=== PATIENT | male | born 1990 | race Caucasian/White ===

== ENCOUNTER 2022-05-25 17:18 | Inpatient (IN) | payer MEDICARE, MEDICAID ==
[~2022-05-25] VITALS: Ht 182.9 cm; Wt 94.5 kg
[~2022-05-25 17:18] MED LIST: NOCURR
[2022-05-25 20:44] LABS: BASOPHILS % (AUTO) 0.4 % (0.0-2.0); EOSINOPHILS % (AUTO) 0.4 % (1.0-6.0); HEMOGLOBIN 14.8 g/dL (13.5-17.5); LYMPHOCYTES # (AUTO) 2.2 K/uL (1.0-4.8); LYMPHOCYTES % (AUTO) 20.2 % (22.0-44.0); MEAN CORPUSCULAR HEMOGLOBIN 30.8 pg (26.0-34.0); MEAN CORPUSCULAR HGB CONC 35.2 G/dL (31.0-37.0); MEAN CORPUSCULAR VOLUME 87 fL (80-100); MONOCYTES # (AUTO) 0.9 K/uL (0.1-1.0); MONOCYTES % (AUTO) 8.1 % (2.0-9.0); NEUTROPHILS # (AUTO) 7.7 K/uL (1.8-7.7); NEUTROPHILS % (AUTO) 70.9 % (40.0-70.0); PLATELET COUNT (AUTO) 233 K/uL (150-450); RED CELL DISTRIBUTION WIDTH 13.1 % (11.5-14.5)
[2022-05-25 20:53] LABS: ANION GAP 6 mmol/L (8-16); CALCIUM, TOTAL 9.2 mg/dL (8.8-10.5); CARBON DIOXIDE 28 mmol/L (22-29); CHLORIDE 103 mmol/L (98-107); CREATININE 1.05 mg/dL (0.60-1.30); GLUCOSE,RANDOM 97 mg/dL (70-110); POTASSIUM 3.6 mmol/L (3.5-5.1); SODIUM SERUM 137 mmol/L (136-145); UREA NITROGEN, BLOOD 10 mg/dL (7-18)
[2022-05-25 20:54] LABS: GLOMERULAR FILTR. RATE CALC > 60 mL/min (>60)
[2022-05-25 20:58] LABS: ALANINE AMINOTRANSFERASE 34 U/L (12-78); ALBUMIN 3.9 g/dL (3.4-5.0); ALKALINE PHOSPHATASE 62 U/L (46-116); ASPARTATE AMINOTRANSFERASE 26 U/L (15-37); BILIRUBIN,TOTAL 2.8 mg/dL (0.1-1.0); TOTAL PROTEIN, SERUM 6.9 g/dL (6.4-8.2)
[2022-05-25 21:15] LABS: COVID AG,FIA SOURCE NASAL SWAB
[2022-05-26 02:32] VITALS: BP 144/85
[2022-05-26] MEDS ORDERED: INFLUENZA VIRUS VACCINE QVS 2022-23 (6MO+)/PF 60 MCG/0.5 ML SYRINGE IM. ONE (02:45)
[2022-05-26 08:27] VITALS: BP 135/81
[2022-05-26] MEDS ORDERED: CloNIDine HCL 0.1 MG TABLET PO PRN (11:30)
[2022-05-26] MEDS ORDERED: LOPERAMIDE HCL 2 MG CAPSULE PO PRN (11:30)
[2022-05-26] MEDS ORDERED: GuaiFENesin/D-METHORPHAN [SUGAR-FREE] 200-20MG/10 ML SYRUP UDCUP PO PRN (11:30)
[2022-05-26] MEDS ORDERED: MAG HYDROX/AL HYDROX/SIMETH ES 30 ML SUSPENSION UDCUP PO PRN (11:30)
[2022-05-26] MEDS ORDERED: MAGNESIUM HYDROXIDE SUSPENSION 30 ML UDCUP PO PRN (11:30)
[2022-05-26] MEDS ORDERED: ALBUTEROL SULFATE HFA 90 MCG/PUFF 8 GM INHALER IH PRN (11:30)
[2022-05-26] MEDS ORDERED: NICOTINE 14 MG/24 HOUR PATCH TD PRN (11:30)
[2022-05-26] MEDS ORDERED: PETROLATUM,WHITE 28 GM JELLY TP PRN (11:30)
[2022-05-26] MEDS ORDERED: ONDANSETRON HCL 4 MG TABLET PO PRN (11:30)
[2022-05-26] MEDS ORDERED: DOCUSATE SODIUM 100 MG CAPSULE PO PRN (11:30)
[2022-05-26 20:08] VITALS: BP 128/78
[2022-05-27 08:13] VITALS: BP 130/74
[2022-05-27 20:13] VITALS: BP 119/74
[2022-05-28 08:16] VITALS: BP 108/73
[2022-05-28] MEDS: LORazepam 2 MG TABLET PO PRN (18:09)
[2022-05-28] MEDS: HALOPERIDOL 5 MG TABLET PO PRN (18:09)
[2022-05-28 20:08] VITALS: BP 110/64
[2022-05-28] MEDS: ZOLPIDEM TARTRATE 10 MG TABLET PO PRN (20:20)
[2022-05-29 08:20] VITALS: BP 131/68
[2022-05-29 14:18] LABS: APPEARANCE,URINE CLEAR (CLEAR); BILIRUBIN,URINE NEGATIVE (NEGATIVE); GLUCOSE, URINE (UA) NEGATIVE (NEGATIVE); KETONES,URINE NEGATIVE (NEGATIVE); LEUKOCYTE ESTERASE ,URINE NEGATIVE (NEGATIVE); NITRATE,URINE NEGATIVE (NEGATIVE); OCCULT BLOOD,URINE NEGATIVE (NEGATIVE); PROTEIN,URINE NEGATIVE (NEGATIVE); SPECIFIC GRAVITIY, URINE 1.008 (1.003-1.030); UROBILINOGEN,URINE <=1.0 mg/dL (<=1.0)
[2022-05-29 14:24] LABS: AMPHET/METH SCREEN,URINE NEGATIVE (NEGATIVE); BARBITURATE SCREEN, URINE NEGATIVE (NEGATIVE); BENZODIAZEPINES SCREEN,URINE NEGATIVE (NEGATIVE); CANNABINOID SCREEN,URINE NEGATIVE (NEGATIVE); COCAINE SCREEN,URINE NEGATIVE (NEGATIVE); METHADONE SCREEN, URINE NEGATIVE (NEGATIVE); OPIATE SCREEN,URINE NEGATIVE (NEGATIVE)
[2022-05-29 14:25] LABS: PHENCYCLIDINE SCREEN,URINE NEGATIVE (NEGATIVE)
[2022-05-29 20:11] VITALS: BP 109/61
[2022-05-29] MEDS: LORazepam 2 MG TABLET PO PRN (21:18)
[2022-05-29] MEDS: ZOLPIDEM TARTRATE 10 MG TABLET PO PRN (21:18)
[2022-05-30 08:04] VITALS: BP 127/76
[2022-05-30] MEDS: LORazepam 2 MG TABLET PO PRN ×2 (09:05→16:57)
[2022-05-30] MEDS: RisperiDONE 0.5 MG TABLET PO SCH ×2 (10:34→16:57)
[2022-05-30] MEDS: HALOPERIDOL 5 MG TABLET PO PRN (16:57)
[2022-05-30 20:21] VITALS: BP 105/61
[2022-05-31] MEDS: RisperiDONE 0.5 MG TABLET PO SCH ×2 (08:26→16:20)
[2022-05-31] MEDS: LORazepam 2 MG TABLET PO PRN ×2 (08:31→16:20)
[2022-05-31 08:42] VITALS: BP 118/63
[2022-05-31 10:11] LABS: GLUCOMETER DEV NAME(LOC) POC.BV
[2022-05-31] MEDS: HALOPERIDOL 5 MG TABLET PO PRN (16:20)
[2022-05-31 20:00] VITALS: BP 120/70
[2022-06-01] MEDS: RisperiDONE 0.5 MG TABLET PO SCH ×2 (08:03→17:06)
[2022-06-01] MEDS: LORazepam 2 MG TABLET PO PRN ×2 (08:03→20:41)
[2022-06-01 08:09] VITALS: BP 118/70
[2022-06-01 20:00] VITALS: BP 114/72
[2022-06-01] MEDS: ZOLPIDEM TARTRATE 10 MG TABLET PO PRN (20:24)
[2022-06-01] MEDS: HALOPERIDOL 5 MG TABLET PO PRN (20:45)
[2022-06-02 08:06] VITALS: BP 115/92
[2022-06-02] MEDS: LORazepam 2 MG TABLET PO PRN ×2 (08:22→16:10)
[2022-06-02] MEDS: RisperiDONE 0.5 MG TABLET PO SCH ×2 (08:22→16:10)
[2022-06-02] MEDS: ZOLPIDEM TARTRATE 10 MG TABLET PO PRN (22:38)
[2022-06-03 04:00] VITALS: BP 120/86
[2022-06-03] MEDS: LORazepam 2 MG TABLET PO PRN ×2 (09:01→16:33)
[2022-06-03] MEDS: RisperiDONE 0.5 MG TABLET PO SCH ×2 (09:01→16:33)
[2022-06-03] MEDS: HALOPERIDOL 5 MG TABLET PO PRN (17:42)
[2022-06-03 20:43] VITALS: BP 132/79
[2022-06-04 08:25] VITALS: BP 100/60
[2022-06-04] MEDS: RisperiDONE 0.5 MG TABLET PO SCH ×2 (08:55→16:11)
[2022-06-04 20:10] VITALS: BP 132/76
[2022-06-04] MEDS: LORazepam 2 MG TABLET PO PRN (20:59)
[2022-06-04] MEDS: ZOLPIDEM TARTRATE 10 MG TABLET PO PRN (20:59)
[2022-06-04] MEDS: HALOPERIDOL 5 MG TABLET PO PRN (20:59)
[2022-06-05] MEDS: RisperiDONE 0.5 MG TABLET PO SCH ×2 (08:07→16:13)
[2022-06-05 08:38] VITALS: BP 110/55
[2022-06-05] MEDS ORDERED: HALOPERIDOL LACTATE 5 MG/ML VIAL IM ONE (17:45)
[2022-06-05] MEDS ORDERED: LORazepam 2 MG/ML VIAL IM ONE (17:45)
[2022-06-05] MEDS ORDERED: DiphenhydrAMINE HCL 50 MG/ML VIAL IM ONE (17:45)
[2022-06-05] MEDS ORDERED: HALOPERIDOL LACTATE 5 MG/ML VIAL ONE (18:01)
[2022-06-05] MEDS ORDERED: DiphenhydrAMINE HCL 50 MG/ML VIAL ONE (18:03)
[2022-06-05 20:27] VITALS: BP 118/71
[2022-06-06 08:23] VITALS: BP 123/76
[2022-06-06] MEDS: RisperiDONE 0.5 MG TABLET PO SCH ×2 (08:40→16:15)
[2022-06-06 20:05] VITALS: BP 128/70
[2022-06-07] MEDS: RisperiDONE 0.5 MG TABLET PO SCH ×2 (08:12→16:10)
[2022-06-07 08:20] VITALS: BP 127/75
[2022-06-07 09:26] LABS: GLUCOMETER DEV NAME(LOC) POC.BV
[2022-06-07 20:07] VITALS: BP 130/70
[2022-06-07] MEDS: HALOPERIDOL 5 MG TABLET PO PRN (23:59)
[2022-06-08] MEDS: HALOPERIDOL 5 MG TABLET PO PRN ×2 (08:07→16:23)
[2022-06-08] MEDS: RisperiDONE 0.5 MG TABLET PO SCH ×2 (08:07→16:23)
[2022-06-08 09:24] VITALS: BP 126/72
[2022-06-08 20:41] VITALS: BP 131/80
[2022-06-09 08:24] VITALS: BP 107/65
[2022-06-09] MEDS: RisperiDONE 0.5 MG TABLET PO SCH ×2 (09:27→16:13)
[2022-06-09 20:06] VITALS: BP 125/72
[2022-06-10 08:02] VITALS: BP 110/64
[2022-06-10] MEDS: RisperiDONE 0.5 MG TABLET PO SCH ×2 (08:09→16:14)
[2022-06-10 21:31] VITALS: BP 139/92
[2022-06-10] MEDS: HALOPERIDOL 5 MG TABLET PO PRN (23:12)
[2022-06-11] MEDS: HALOPERIDOL 5 MG TABLET PO PRN (08:14)
[2022-06-11] MEDS: RisperiDONE 0.5 MG TABLET PO SCH ×2 (08:14→16:18)
[2022-06-11 08:15] VITALS: BP 106/67
[2022-06-11 20:16] VITALS: BP 114/71
[2022-06-12 08:05] VITALS: BP 106/63
[2022-06-12] MEDS: RisperiDONE 0.5 MG TABLET PO SCH ×2 (08:23→16:09)
[2022-06-12] MEDS: ACETAMINOPHEN 325 MG TABLET PO PRN (08:43)
[2022-06-12 20:04] VITALS: BP 110/64
[2022-06-13] MEDS: RisperiDONE 0.5 MG TABLET PO SCH ×2 (08:12→17:04)
[2022-06-13 08:43] VITALS: BP 103/60
[2022-06-13] MEDS: IBUPROFEN 400 MG TABLET PO PRN (14:46)
[2022-06-13] MEDS: ACETAMINOPHEN 325 MG TABLET PO PRN (18:15)
[2022-06-13 20:27] VITALS: BP 114/85
[2022-06-14] MEDS: ACETAMINOPHEN 325 MG TABLET PO PRN (03:00)
[2022-06-14] MEDS: IBUPROFEN 400 MG TABLET PO PRN (08:12)
[2022-06-14] MEDS: RisperiDONE 0.5 MG TABLET PO SCH ×2 (08:12→16:38)
[2022-06-14 08:22] VITALS: BP 100/71
[2022-06-14 14:06] LABS: GLUCOMETER DEV NAME(LOC) POC.BV
[2022-06-14 21:40] VITALS: BP 121/80
[2022-06-15 02:35] VITALS: BP 111/68
[2022-06-15] MEDS: IBUPROFEN 400 MG TABLET PO PRN (02:42)
[2022-06-15] MEDS: RisperiDONE 0.5 MG TABLET PO SCH (08:03)
[2022-06-15] MEDS ORDERED: RISP0.5T39 PO (09:30)
[2022-06-15 10:13] VITALS: BP 113/72
[2022-06-16] MEDS ORDERED: RISP0.5T66 PO (08:44)
== END 2022-06-15 11:09 | disposition home or self-care (01) | DRG 885 ==
LOC: EMS 17:24 → B3A 05-26 01:55
PROVIDERS: ADMIT Psychiatry & Neurology Child & Adolescent Psychiatry; ATTEND Psychiatry & Neurology Child & Adolescent Psychiatry
DX: F20.0 Paranoid schizophrenia (principal); U07.1 COVID-19; G93.40 Encephalopathy, unspecified; Z20.822 Contact with and (suspected) exposure to COVID-19; Z59.00 Homelessness unspecified; Z91.199 Patient's noncompliance with other medical treatment and regimen due to unspecified reason
CPT/HCPCS: 80053; 81003; 85025; G0480; J1200; J1630; J2060